=== PATIENT | female | born 1985 | race Caucasian/White ===

== ENCOUNTER 2019-10-17 23:06 | Emergency (ER) | payer MEDICAID ==
[~2019-10-17] VITALS: Ht 167.6 cm; Wt 136.0 kg
[2019-10-17] MEDS ORDERED: ondansetron 4mg rapidly disintigrating tab PO ONE (23:25)
[2019-10-17 23:40] LABS: BASOPHILS # (AUTO) 0.1 X10'3 (0-0.2); BASOPHILS % (AUTO) 0.9 % (0-1); EOSINOPHILS # (AUTO) 0.2 X10'3 (0-0.9); EOSINOPHILS % (AUTO) 2.3 % (0-6); HEMOGLOBIN 13.9 g/dl (12.0-16.0); LYMPHOCYTES # (AUTO) 1.8 X10'3 (1.1-4.8); LYMPHOCYTES % (AUTO) 25.5 % (21-51); MEAN CORPUSCULAR HEMOGLOBIN 30.4 PG (27.0-31.0); MEAN CORPUSCULAR VOLUME 89.3 FL (78-98); MEAN PLATELET VOLUME 9.2 FL (7.4-10.4); MONOCYTES # (AUTO) 0.4 X10'3 (0-0.9); NEUTROPHILS # (AUTO) 4.7 X10'3 (1.8-7.7); NEUTROPHILS % (AUTO) 66.3 % (42-75); PLATELET COUNT 208 X10'3 (140-440); RED BLOOD COUNT 4.59 X10'6 (4.20-5.60); RED CELL DISTRIBUTION WIDTH 13.5 % (11.5-14.5); WHITE BLOOD COUNT 7.1 X10'3 (4.5-11.0)
[2019-10-17 23:59] LABS: ALANINE AMINOTRANSFERASE 164 U/L (12-78); ALBUMIN 3.5 G/DL (3.4-5.0); ALKALINE PHOSPHATASE 247 IU/L (46-116); ANION GAP 9 (8-16); ASPARTATE AMINO TRANSFERASE 51 U/L (10-37); BILIRUBIN,TOTAL 7.5 MG/DL (0.1-1.0); BLOOD UREA NITROGEN 7 MG/DL (7-18); CHLORIDE 105 MMOL/L (99-107); GLUCOSE 104 MG/DL (70-104); LIPASE 111 U/L (73-393); SODIUM 138 MMOL/L (135-145); TOTAL CARBON DIOXIDE 23.9 MMOL/L (24-32); eGFR > 90 ML/MIN
[2019-10-18 00:16] LABS: ALBUMIN/GLOBULIN RATIO 0.8 (1.1-1.5); CALCIUM 9.2 MG/DL (8.5-10.1); TOTAL PROTEIN 7.7 G/DL (6.4-8.2)
[2019-10-18 00:24] LABS: URINE HCG NEGATIVE (NEG)
[2019-10-18 00:33] LABS: CLARITY,URINE CLOUDY (Clear); COLOR,URINE YELLOW (Yellow); GLUCOSE, URINE NEGATIVE (Neg); KETONES,URINE TRACE mg/dl (Neg); LEUKOCYTE ESTERASE ,URINE TRACE (Neg); NITRITES, URINE NEGATIVE (Neg); OCCULT BLOOD,URINE LARGE (Neg); PH,URINE 6.5 (4.8-8.0); PROTEIN,URINE 100 mg/dl (Neg)
[2019-10-18 00:37] LABS: UA COLLECTION TYPE CLN CATCH MIDSTREAM
[2019-10-18 00:38] LABS: BACTERIA,URINE FEW /HPF (Neg); RBC,URINE 50-100 /HPF (0-2); SQUAMOUS EPITHELIAL CELL,UR FEW /LPF (FEW); WBC,URINE 0-4 /HPF (0-4)
[2019-10-18] MEDS ORDERED: normal saline 1000ml 1,000 ML IV SCH (01:07)
[2019-10-18] MEDS ORDERED: ondansetron/PF 4mg/2ml inj IV PRN (01:10)
[2019-10-18] MEDS ORDERED: potassium CL 10mEq/100ml bag 100 ML IV PRN ×2 (01:10)
[2019-10-18] MEDS ORDERED: metoclopramide 5 mg/ml inj IV PRN (01:10)
[2019-10-18] MEDS ORDERED: magnesium 4gm in 100ml NS 100 ML IV PRN (01:10)
[2019-10-18] MEDS ORDERED: mag hydrox/Alum hydrox/simeth 30ml oral suspension PO PRN (01:10)
[2019-10-18] MEDS ORDERED: magnesium 2GM in 50ml NS 50 ML IV PRN (01:10)
[2019-10-18] MEDS ORDERED: potassium Cl 20 mEq SR tablet PO PRN ×2 (01:10)
[2019-10-18] MEDS ORDERED: acetaminophen 325mg tablet PO PRN (01:10)
[2019-10-18] MEDS ORDERED: magnesium hydroxide 30ml (MOM) UD suspension PO PRN (01:10)
[2019-10-18 01:43] VITALS: BP 142/50
[2019-10-18] MEDS ORDERED: heparin, porcine 5000 units/ml vial SQ SCH (08:00)
[2019-10-18] MEDS ORDERED: K and/or MAG REPLACEMENT MC SCH (08:00)
[2019-10-18] MEDS ORDERED: NORMAL SALINE IV ONE (08:00)
[2019-10-18] MEDS ORDERED: SINCALIDE IV ONE (08:00)
[2019-10-18] MEDS ORDERED: NORE0.3520 PO (11:27)
== END 2019-10-18 01:47 | disposition home or self-care (01) ==
LOC: ER 23:07 → EDBEDREQTM 10-18 01:05 → UNDOADMIN 10-18 01:07 → ED HOLD 10-18 01:07 → EDBEDREQ 10-18 01:25 → UNDODISIN 10-18 01:45
DX: K80.20 Calculus of gallbladder without cholecystitis without obstruction (principal); R17 Unspecified jaundice; Z86.19 Personal history of other infectious and parasitic diseases; Z79.899 Other long term (current) drug therapy
CPT/HCPCS: 36415; 76700; 80053; 81001; 81025; 83690; 85025; 87088; 99284; 99285; G0378

== ENCOUNTER 2019-10-18 09:45 | Inpatient (IN) | payer MEDICAID ==
[2019-10-18] VITALS (13 sets, daily range): BP systolic 105–153; BP diastolic 61–98
[~2019-10-18] VITALS: Ht 167.6 cm; Wt 136.4 kg
[2019-10-18] MEDS ORDERED: normal saline 1000ML IV soln IVB ONE (10:05)
[2019-10-18] MEDS ORDERED: piperacillin/tazo 3.375gm/50ml 50 ML IV ONE (10:10)
[2019-10-18] MEDS ORDERED: ondansetron/PF 4mg/2ml inj IV PRN (10:20)
[2019-10-18] MEDS ORDERED: potassium CL 10mEq/100ml bag 100 ML IV PRN (10:20)
[2019-10-18] MEDS ORDERED: magnesium 2GM in 50ml NS 50 ML IV PRN (10:20)
[2019-10-18] MEDS ORDERED: mag hydrox/Alum hydrox/simeth 30ml oral suspension PO PRN (10:20)
[2019-10-18] MEDS ORDERED: acetaminophen 325mg tablet PO PRN ×2 (10:20)
[2019-10-18] MEDS ORDERED: acetaminophen 650mg rectal suppository RC PRN (10:20)
[2019-10-18] MEDS ORDERED: magnesium hydroxide 30ml (MOM) UD suspension PO PRN (10:20)
[2019-10-18] MEDS ORDERED: magnesium 4gm in 100ml NS 100 ML IV PRN (10:20)
[2019-10-18] MEDS ORDERED: magnesium Cl slow-release 64mg tablet PO PRN (10:20)
[2019-10-18] MEDS ORDERED: morphine 2 MG/ML inj. syringe IV PRN ×2 (10:20)
[2019-10-18] MEDS ORDERED: bisacodyl 10mg suppository rectal RC PRN (10:20)
[2019-10-18] MEDS ORDERED: HYDROcodone/acetaminophen 5mg/325mg tablet PO PRN (10:20)
[2019-10-18] MEDS ORDERED: potassium Cl 20 mEq SR tablet PO PRN ×2 (10:20)
[2019-10-18] MEDS ORDERED: metoclopramide 5 mg/ml inj IV PRN (10:20)
[2019-10-18] MEDS ORDERED: diphenhydrAMINE 25mg capsule PO PRN (10:20)
[2019-10-18 11:09] LABS: BASOPHILS % (AUTO) 0.4 % (0-1); EOSINOPHILS # (AUTO) 0.2 X10'3 (0-0.9); EOSINOPHILS % (AUTO) 2.6 % (0-6); HEMATOCRIT 42.8 % (35.0-45.0); HEMOGLOBIN 14.5 g/dl (12.0-16.0); LYMPHOCYTES # (AUTO) 1.9 X10'3 (1.1-4.8); LYMPHOCYTES % (AUTO) 29.9 % (21-51); MEAN CORPUSCULAR HEMOGLOBIN 30.1 PG (27.0-31.0); MEAN CORPUSCULAR HGB CONC 33.8 g/dL (33.0-36.5); MEAN CORPUSCULAR VOLUME 88.8 FL (78-98); MEAN PLATELET VOLUME 9.2 FL (7.4-10.4); MONOCYTES # (AUTO) 0.3 X10'3 (0-0.9); MONOCYTES % (AUTO) 5.1 % (2-12); NEUTROPHILS # (AUTO) 3.9 X10'3 (1.8-7.7); PLATELET COUNT 231 X10'3 (140-440); RED BLOOD COUNT 4.82 X10'6 (4.20-5.60); RED CELL DISTRIBUTION WIDTH 13.4 % (11.5-14.5); WHITE BLOOD COUNT 6.3 X10'3 (4.5-11.0)
[2019-10-18 11:21] LABS: ALANINE AMINOTRANSFERASE 153 U/L (12-78); ALBUMIN 3.4 G/DL (3.4-5.0); ALKALINE PHOSPHATASE 260 IU/L (46-116); ANION GAP 13 (8-16); ASPARTATE AMINO TRANSFERASE 49 U/L (10-37); BILIRUBIN,TOTAL 7.9 MG/DL (0.1-1.0); BLOOD UREA NITROGEN 5 MG/DL (7-18); BUN/CREATININE RATIO 6.8 (6.6-38.0); CALCIUM 9.7 MG/DL (8.5-10.1); CHLORIDE 103 MMOL/L (99-107); CREATININE 0.73 MG/DL (0.40-0.90); GLUCOSE 120 MG/DL (70-104); LIPASE 75 U/L (73-393); SODIUM 140 MMOL/L (135-145); TOTAL CARBON DIOXIDE 24.2 MMOL/L (24-32); eGFR > 90 ML/MIN
[2019-10-18 11:22] LABS: ALBUMIN/GLOBULIN RATIO 0.8 (1.1-1.5); POTASSIUM 3.7 MMOL/L (3.5-5.1); TOTAL PROTEIN 7.7 G/DL (6.4-8.2)
[2019-10-18] MEDS ORDERED: fentaNYL/PF 50MCG/1 ML 2ML syringe ONE (11:22)
[2019-10-18] MEDS ORDERED: MIDAZolam 5mg/5ml vial ONE (11:22)
[2019-10-18] MEDS ORDERED: LIDOcaine Viscous 15ml cup ONE (11:22)
[2019-10-18 11:23] LABS: ACETAMINOPHEN < 2.0 UG/ML (10-30); HEMOGLOBIN A1C 5.3 % (4.5-6.2)
[2019-10-18] MEDS ORDERED: glucagon, human recombinant 1mg kit ONE (11:23)
[2019-10-18] MEDS ORDERED: iohexol 300 MG/1 ML 50ml polymer ONE (11:23)
[2019-10-18] MEDS ORDERED: NORE0.3520 PO (11:27)
[2019-10-18] MEDS ORDERED: proCHLORperazine 10 MG/2 ml inj ONE (11:36)
--- NOTE | 2019-10-18 13:42 | NUR ---
Patient in room [facility]. I have received report from DANNIELLE FORRESTER FROM ER and had the opportunity to ask questions and assume patient care.
[2019-10-18] MEDS: dextrose 5%-normal saline 1,000 ML IV SCH ×3 (15:26→23:29)
[2019-10-18] MEDS: piperacillin/tazo 3.375gm/50ml 50 ML IV SCH ×2 (18:25→23:29)
--- NOTE | 2019-10-18 18:30 | NUR ---
Patient in room [facility]. I have received report from JOSE R and had the opportunity to ask questions and assume patient care.
--- NOTE | 2019-10-18 18:35 | NUR ---
Problems reprioritized. Patient report given, questions answered & plan of care reviewed with DANNIELLE RUELAS.
[2019-10-18] MEDS: K and/or MAG REPLACEMENT MC SCH (20:00)
[2019-10-19 05:32] LABS: BASOPHILS % (AUTO) 0.7 % (0-1); EOSINOPHILS # (AUTO) 0.1 X10'3 (0-0.9); EOSINOPHILS % (AUTO) 2.4 % (0-6); HEMATOCRIT 36.3 % (35.0-45.0); HEMOGLOBIN 12.3 g/dl (12.0-16.0); LYMPHOCYTES # (AUTO) 1.6 X10'3 (1.1-4.8); LYMPHOCYTES % (AUTO) 26.5 % (21-51); MEAN CORPUSCULAR HEMOGLOBIN 30.3 PG (27.0-31.0); MEAN CORPUSCULAR HGB CONC 33.9 g/dL (33.0-36.5); MEAN CORPUSCULAR VOLUME 89.5 FL (78-98); MEAN PLATELET VOLUME 9.5 FL (7.4-10.4); MONOCYTES # (AUTO) 0.3 X10'3 (0-0.9); MONOCYTES % (AUTO) 5.4 % (2-12); NEUTROPHILS # (AUTO) 3.9 X10'3 (1.8-7.7); PLATELET COUNT 194 X10'3 (140-440); RED BLOOD COUNT 4.06 X10'6 (4.20-5.60); RED CELL DISTRIBUTION WIDTH 13.6 % (11.5-14.5)
[2019-10-19 05:38] LABS: ALANINE AMINOTRANSFERASE 106 U/L (12-78); ALBUMIN 2.6 G/DL (3.4-5.0); ALBUMIN/GLOBULIN RATIO 0.8 (1.1-1.5); ALKALINE PHOSPHATASE 207 IU/L (46-116); ANION GAP 9 (8-16); ASPARTATE AMINO TRANSFERASE 37 U/L (10-37); BILIRUBIN,TOTAL 6.8 MG/DL (0.1-1.0); BLOOD UREA NITROGEN 8 MG/DL (7-18); BUN/CREATININE RATIO 9.5 (6.6-38.0); CALCIUM 8.7 MG/DL (8.5-10.1); CHLORIDE 108 MMOL/L (99-107); CHOL/HDL RATIO 18.2 (0.00-4.99); CHOLESTEROL 182 MG/DL (0-200); CREATININE 0.84 MG/DL (0.40-0.90); GLUCOSE 118 MG/DL (70-104); HDL CHOLESTEROL 10 MG/DL (35-60); LDL CHOLESTEROL 169 MG/DL (50-100); PHOSPHORUS 3.8 MG/DL (2.3-4.5); POTASSIUM 3.6 MMOL/L (3.5-5.1); SODIUM 142 MMOL/L (135-145); TOTAL CARBON DIOXIDE 24.7 MMOL/L (24-32); TRIGLYCERIDES 205 MG/DL (20-135); eGFR 78 ML/MIN
--- NOTE | 2019-10-19 06:31 | NUR ---
Problems reprioritized. Patient report given, questions answered & plan of care reviewed with MICHAEL.
--- NOTE | 2019-10-19 06:51 | NUR ---
Patient in room [facility]. I have received report from DANNIELLE Mccarthy and had the opportunity to ask questions and assume patient care.
[2019-10-19 07:00] VITALS: BP 116/70
[2019-10-19] MEDS: K and/or MAG REPLACEMENT MC SCH ×2 (07:59→20:00)
[2019-10-19] MEDS: piperacillin/tazo 3.375gm/50ml 50 ML IV SCH ×2 (08:01→16:03)
[2019-10-19] MEDS: dextrose 5%-normal saline 1,000 ML IV SCH ×2 (08:05→18:23)
[2019-10-19 11:55] VITALS: BP 121/75
--- NOTE | 2019-10-19 18:26 | NUR ---
Problems reprioritized. Patient report given, questions answered & plan of care reviewed with Kari Pierce RN.
--- NOTE | 2019-10-19 18:30 | NUR ---
Patient in room [facility]. I have received report from MICHAEL SPICER and had the opportunity to ask questions and assume patient care.
[2019-10-19 20:00] VITALS: BP 128/83
[2019-10-19] MEDS: HYDROcodone/acetaminophen 10/325mg tab PO PRN (22:32)
[2019-10-20] VITALS (19 sets, daily range): BP systolic 115–153; BP diastolic 64–90
[2019-10-20] MEDS: piperacillin/tazo 3.375gm/50ml 50 ML IV SCH ×3 (00:07→16:54)
[2019-10-20] MEDS: dextrose 5%-normal saline 1,000 ML IV SCH ×2 (04:10→11:13)
[2019-10-20 05:35] LABS: BASOPHILS % (AUTO) 0.5 % (0-1); EOSINOPHILS # (AUTO) 0.2 X10'3 (0-0.9); EOSINOPHILS % (AUTO) 3.2 % (0-6); HEMATOCRIT 36.8 % (35.0-45.0); HEMOGLOBIN 12.3 g/dl (12.0-16.0); LYMPHOCYTES # (AUTO) 1.9 X10'3 (1.1-4.8); LYMPHOCYTES % (AUTO) 32.7 % (21-51); MEAN CORPUSCULAR HEMOGLOBIN 29.9 PG (27.0-31.0); MEAN CORPUSCULAR HGB CONC 33.6 g/dL (33.0-36.5); MEAN CORPUSCULAR VOLUME 89.1 FL (78-98); MONOCYTES # (AUTO) 0.3 X10'3 (0-0.9); MONOCYTES % (AUTO) 4.7 % (2-12); NEUTROPHILS # (AUTO) 3.3 X10'3 (1.8-7.7); NEUTROPHILS % (AUTO) 58.9 % (42-75); PLATELET COUNT 191 X10'3 (140-440); RED BLOOD COUNT 4.13 X10'6 (4.20-5.60); RED CELL DISTRIBUTION WIDTH 13.4 % (11.5-14.5); WHITE BLOOD COUNT 5.7 X10'3 (4.5-11.0)
[2019-10-20 05:53] LABS: ALANINE AMINOTRANSFERASE 96 U/L (12-78); ALBUMIN 2.8 G/DL (3.4-5.0); ALKALINE PHOSPHATASE 214 IU/L (46-116); ANION GAP 8 (8-16); ASPARTATE AMINO TRANSFERASE 34 U/L (10-37); BILIRUBIN,TOTAL 6.2 MG/DL (0.1-1.0); BLOOD UREA NITROGEN 7 MG/DL (7-18); BUN/CREATININE RATIO 8.5 (6.6-38.0); CALCIUM 8.8 MG/DL (8.5-10.1); CHLORIDE 106 MMOL/L (99-107); CREATININE 0.82 MG/DL (0.40-0.90); GLUCOSE 121 MG/DL (70-104); POTASSIUM 3.4 MMOL/L (3.5-5.1); SODIUM 141 MMOL/L (135-145); TOTAL CARBON DIOXIDE 27.1 MMOL/L (24-32); eGFR 80 ML/MIN
[2019-10-20 05:56] LABS: ALBUMIN/GLOBULIN RATIO 0.8 (1.1-1.5); PHOSPHORUS 3.6 MG/DL (2.3-4.5); TOTAL PROTEIN 6.5 G/DL (6.4-8.2)
--- NOTE | 2019-10-20 06:13 | NUR ---
Problems reprioritized. Patient report given, questions answered & plan of care reviewed with MICHAEL SPICER.
--- NOTE | 2019-10-20 06:15 | NUR ---
Patient in room [facility]. I have received report from Kari Pierce RN and had the opportunity to ask questions and assume patient care.
[2019-10-20] MEDS: K and/or MAG REPLACEMENT MC SCH ×2 (06:56→20:00)
[2019-10-20] MEDS: potassium CL 10mEq/100ml bag 100 ML IV PRN ×4 (07:13→13:13)
[2019-10-20] MEDS ORDERED: INDOCYANINE GREEN 25 MG/10 ML VIAL IV ONE (13:00)
[2019-10-20] MEDS ORDERED: iohexol 300 MG/1 ML 50ml polymer ONE (13:48)
[2019-10-20] MEDS ORDERED: glucagon, human recombinant 1mg kit ONE (13:49)
--- NOTE | 2019-10-20 14:30 | NUR ---
Patient to the OR via bed with x2 staff members. Patient alert, oriented and in no apparent distress at time of transport.
[2019-10-20] MEDS ORDERED: BUPIVAcaine/PF 2.5 mg/ml (0.25%) 30ml vial ONE (14:50)
[2019-10-20] MEDS ORDERED: LIDOcaine 1% 30ml preserv. free vial ONE (14:50)
[2019-10-20] MEDS ORDERED: fentaNYL /PF 50mcg/ml 5ml ampule ONE (14:58)
[2019-10-20] MEDS ORDERED: midazolam 2 mg/2 ml injection ONE (14:58)
[2019-10-20] MEDS ORDERED: sevoflurane 250ml liquid IH ONE (14:59)
[2019-10-20] MEDS ORDERED: insulin regular, human U-100 3ml vial - multi-dose ONE (16:13)
--- NOTE | 2019-10-20 16:43 | NUR ---
Received from OR via BED, accompanied by Anesthesiologist DR POSADA and report given by Anesthesiolgist. AWAKE, APPROPRIATE RESPONSES. VSS. IV LEFT HAND PATENT WITH LR @ 100MLS/HR. SCD'S APPLIED BILAT. MONITOR SR. PT STATES HX A-FIB IN 2012 FROM "STRESS". EKG OBTAINED PER DR POSADA R/T EPISODE OF A-FIB IN THE OR. EKG NSR. PT DENIES ANY DISCOMFORT.
[2019-10-20] MEDS ORDERED: meperidine/PF 25mg/ml syringe IV PRN ×3 (16:55)
[2019-10-20] MEDS ORDERED: morphine 4 MG/ML inj SYRINge IV PRN (16:55)
[2019-10-20] MEDS ORDERED: ringers solution, lacted 1,000 ML IV SCH (16:55)
[2019-10-20] MEDS ORDERED: proCHLORperazine 10 MG/2 ml inj IV PRN (16:55)
[2019-10-20] MEDS ORDERED: morphine 2 MG/ML inj. syringe IV PRN (16:55)
[2019-10-20] MEDS ORDERED: ondansetron/PF 4mg/2ml inj IV PRN (16:55)
[2019-10-20] MEDS ORDERED: metoprolol tartrate 1mg/ml inj IV ONE (17:09)
[2019-10-20] MEDS ORDERED: neostigmine methylsulfate 1 MG/ML 10ml vial ONE (17:09)
[2019-10-20] MEDS ORDERED: ondansetron/PF 4mg/2ml inj ONE (17:09)
[2019-10-20] MEDS ORDERED: propofol inj 20 ML IV ONE (17:09)
[2019-10-20] MEDS ORDERED: succinylcholine 20mg/ml inj IV ONE (17:09)
[2019-10-20] MEDS ORDERED: rocuronium 10mg/ml inj IV ONE (17:09)
[2019-10-20] MEDS ORDERED: LIDOcaine 2% (20mg/ml) 5ml vial ONE (17:09)
[2019-10-20] MEDS ORDERED: glycopyrrolate 0.2mg/ml inj ONE (17:09)
[2019-10-20] MEDS ORDERED: esmolol inj. 10 ML IV ONE (17:09)
--- NOTE | 2019-10-20 17:43 | NUR ---
VSS. AWAKE, CONVERSING WITH STAFF. NO COMPLAINTS. MONITOR SR. IV PATENT #20 LEFT HAND. REPORT GIVEN TO MICHAEL SPICER WITH ALL QUESTIONS ANSWERED. TRANSPORTED VIA BED TO [facility] BY RN WITH MICHAEL PRESENT TO RECEIVE PT. BED LOWERED, CALL LIGHT GIVEN, AND O2 CONNECTED. Addendum: 10/20/19 at 1800 by Catherine Alfredo RN Amended: Links added.
--- NOTE | 2019-10-20 18:35 | NUR ---
Problems reprioritized. Patient report given, questions answered & plan of care reviewed with Kari Pierce RN.
[2019-10-20] MEDS: lactobacillus rhamnosus 10,000 MMU CELLS/CAPSULE PO SCH (21:58)
[2019-10-20] MEDS: HYDROcodone/acetaminophen 10/325mg tab PO PRN (21:58)
[2019-10-21] VITALS: BP 116/71
[2019-10-21] MEDS: piperacillin/tazo 3.375gm/50ml 50 ML IV SCH ×3 (00:45→16:21)
[2019-10-21] MEDS: diphenhydrAMINE 50 mg/ml inj IV PRN ×2 (04:47→16:36)
[2019-10-21] MEDS: dextrose 5%-normal saline 1,000 ML IV SCH ×2 (04:56→16:27)
--- NOTE | 2019-10-21 06:30 | NUR ---
Problems reprioritized. Patient report given, questions answered & plan of care reviewed with FILIPE SPICER.
[2019-10-21 07:00] VITALS: BP 116/73
--- NOTE | 2019-10-21 07:02 | NUR ---
Patient in room [facility]. I have received report from DANNIELLE Marquez and had the opportunity to ask questions and assume patient care.
[2019-10-21 07:09] LABS: BASOPHILS % (AUTO) 0.6 % (0-1); EOSINOPHILS # (AUTO) 0.2 X10'3 (0-0.9); EOSINOPHILS % (AUTO) 3.4 % (0-6); HEMOGLOBIN 12.1 g/dl (12.0-16.0); LYMPHOCYTES # (AUTO) 1.8 X10'3 (1.1-4.8); LYMPHOCYTES % (AUTO) 27.7 % (21-51); MEAN CORPUSCULAR HGB CONC 33.5 g/dL (33.0-36.5); MEAN CORPUSCULAR VOLUME 89.6 FL (78-98); MEAN PLATELET VOLUME 9.3 FL (7.4-10.4); MONOCYTES # (AUTO) 0.3 X10'3 (0-0.9); MONOCYTES % (AUTO) 4.7 % (2-12); NEUTROPHILS % (AUTO) 63.6 % (42-75); PLATELET COUNT 187 X10'3 (140-440); RED BLOOD COUNT 4.01 X10'6 (4.20-5.60); RED CELL DISTRIBUTION WIDTH 13.5 % (11.5-14.5); WHITE BLOOD COUNT 6.3 X10'3 (4.5-11.0)
[2019-10-21 07:23] LABS: ALANINE AMINOTRANSFERASE 91 U/L (12-78); ALBUMIN 2.7 G/DL (3.4-5.0); ALKALINE PHOSPHATASE 210 IU/L (46-116); ANION GAP 6 (8-16); ASPARTATE AMINO TRANSFERASE 47 U/L (10-37); BILIRUBIN,TOTAL 6.2 MG/DL (0.1-1.0); BLOOD UREA NITROGEN 7 MG/DL (7-18); BUN/CREATININE RATIO 8.1 (6.6-38.0); CALCIUM 9.1 MG/DL (8.5-10.1); CHLORIDE 105 MMOL/L (99-107); CREATININE 0.86 MG/DL (0.40-0.90); GLUCOSE 111 MG/DL (70-104); POTASSIUM 3.3 MMOL/L (3.5-5.1); SODIUM 139 MMOL/L (135-145); TOTAL CARBON DIOXIDE 28.2 MMOL/L (24-32); eGFR 76 ML/MIN
[2019-10-21 07:26] LABS: PARTIAL THROMBOPLASTIN TIME 25 SECONDS (22-32)
[2019-10-21 07:27] LABS: MAGNESIUM 1.9 MG/DL (1.5-2.4); TROPONIN I < 0.04 NG/ML (0.0-0.05)
[2019-10-21 07:28] LABS: ALBUMIN/GLOBULIN RATIO 0.8 (1.1-1.5); PHOSPHORUS 4.2 MG/DL (2.3-4.5); TOTAL PROTEIN 6.2 G/DL (6.4-8.2)
[2019-10-21] MEDS: lactobacillus rhamnosus 10,000 MMU CELLS/CAPSULE PO SCH ×2 (07:31→20:26)
[2019-10-21] MEDS: K and/or MAG REPLACEMENT MC SCH ×3 (08:00→19:40)
[2019-10-21 11:00] VITALS: BP 131/83
[2019-10-21] MEDS ORDERED: potassium Cl 20 mEq SR tablet PO PRN (12:05)
[2019-10-21] MEDS ORDERED: potassium CL 10mEq/100ml bag 100 ML IV PRN ×2 (12:05)
[2019-10-21] MEDS: potassium Cl 20 mEq SR tablet PO PRN ×3 (13:31→23:21)
--- NOTE | 2019-10-21 16:46 | NUR ---
Dr. Fishman phoned for results of echo, and is aware LVEF=65% Pt to be NPO p mn for surgery in am.
--- NOTE | 2019-10-21 18:38 | NUR ---
Problems reprioritized. Patient report given, questions answered & plan of care reviewed with DANNIELLE Marquez.
--- NOTE | 2019-10-21 18:40 | NUR ---
Patient in room [facility]. I have received report from FILIPE SPICER and had the opportunity to ask questions and assume patient care.
[2019-10-21 20:00] VITALS: BP 107/56
[2019-10-21] MEDS: HYDROcodone/acetaminophen 10/325mg tab PO PRN (20:26)
[2019-10-22] VITALS (18 sets, daily range): BP systolic 112–140; BP diastolic 65–90
[2019-10-22] MEDS: piperacillin/tazo 3.375gm/50ml 50 ML IV SCH ×2 (00:43→07:33)
[2019-10-22] MEDS: dextrose 5%-normal saline 1,000 ML IV SCH ×2 (00:45→15:02)
[2019-10-22 05:49] LABS: BASOPHILS % (AUTO) 0.6 % (0-1); EOSINOPHILS # (AUTO) 0.2 X10'3 (0-0.9); HEMATOCRIT 37.6 % (35.0-45.0); HEMOGLOBIN 12.7 g/dl (12.0-16.0); LYMPHOCYTES # (AUTO) 1.9 X10'3 (1.1-4.8); LYMPHOCYTES % (AUTO) 30.5 % (21-51); MEAN CORPUSCULAR HEMOGLOBIN 30.3 PG (27.0-31.0); MEAN CORPUSCULAR HGB CONC 33.8 g/dL (33.0-36.5); MEAN CORPUSCULAR VOLUME 89.8 FL (78-98); MEAN PLATELET VOLUME 9.3 FL (7.4-10.4); MONOCYTES # (AUTO) 0.3 X10'3 (0-0.9); MONOCYTES % (AUTO) 4.4 % (2-12); NEUTROPHILS # (AUTO) 3.8 X10'3 (1.8-7.7); NEUTROPHILS % (AUTO) 60.5 % (42-75); PLATELET COUNT 213 X10'3 (140-440); RED BLOOD COUNT 4.19 X10'6 (4.20-5.60); RED CELL DISTRIBUTION WIDTH 13.2 % (11.5-14.5); WHITE BLOOD COUNT 6.3 X10'3 (4.5-11.0)
--- NOTE | 2019-10-22 06:12 | NUR ---
Problems reprioritized. Patient report given, questions answered & plan of care reviewed with FILIPE SPICER.
--- NOTE | 2019-10-22 06:24 | NUR ---
Patient in room [facility]. I have received report from DANNIELLE Marquez and had the opportunity to ask questions and assume patient care.
[2019-10-22 06:34] LABS: ALANINE AMINOTRANSFERASE 90 U/L (12-78); ALBUMIN 3.1 G/DL (3.4-5.0); ALKALINE PHOSPHATASE 217 IU/L (46-116); ANION GAP 8 (8-16); ASPARTATE AMINO TRANSFERASE 44 U/L (10-37); BILIRUBIN,TOTAL 5.6 MG/DL (0.1-1.0); BLOOD UREA NITROGEN 8 MG/DL (7-18); CALCIUM 9.1 MG/DL (8.5-10.1); CHLORIDE 106 MMOL/L (99-107); GLUCOSE 111 MG/DL (70-104); POTASSIUM 3.9 MMOL/L (3.5-5.1); SODIUM 140 MMOL/L (135-145); TOTAL CARBON DIOXIDE 26.5 MMOL/L (24-32); eGFR 83 ML/MIN
[2019-10-22 06:36] LABS: ALBUMIN/GLOBULIN RATIO 0.8 (1.1-1.5); PHOSPHORUS 3.5 MG/DL (2.3-4.5); TOTAL PROTEIN 6.9 G/DL (6.4-8.2)
[2019-10-22] MEDS ORDERED: INDOCYANINE GREEN 25 MG/10 ML VIAL IV ONE (06:40)
[2019-10-22] MEDS: lactobacillus rhamnosus 10,000 MMU CELLS/CAPSULE PO SCH ×2 (07:38→19:29)
[2019-10-22] MEDS: K and/or MAG REPLACEMENT MC SCH ×3 (08:00→19:31)
[2019-10-22] MEDS ORDERED: BUPIVAcaine/PF 2.5 mg/ml (0.25%) 30ml vial ONE (08:40)
[2019-10-22] MEDS ORDERED: LIDOcaine 1% 30ml preserv. free vial ONE (08:40)
--- NOTE | 2019-10-22 09:17 | NUR ---
Pt out to OR for gallbladder surgery. Report called out to PACU.
[2019-10-22] MEDS ORDERED: ringers solution, lacted 1,000 ML IV SCH (09:18)
[2019-10-22] MEDS ORDERED: morphine 4 MG/ML inj SYRINge IV PRN (09:20)
[2019-10-22] MEDS ORDERED: morphine 2 MG/ML inj. syringe IV PRN (09:20)
[2019-10-22] MEDS ORDERED: proCHLORperazine 10 MG/2 ml inj IV PRN (09:20)
[2019-10-22] MEDS ORDERED: ondansetron/PF 4mg/2ml inj IV PRN (09:20)
[2019-10-22] MEDS ORDERED: meperidine/PF 25mg/ml syringe IV PRN ×3 (09:20)
[2019-10-22] MEDS ORDERED: acetaminophen 1,000mg/100ml IV 100 ML IV PRN (09:20)
[2019-10-22] MEDS ORDERED: midazolam 2 mg/2 ml injection ONE (09:48)
[2019-10-22] MEDS ORDERED: fentaNYL /PF 50mcg/ml 5ml ampule ONE (09:48)
[2019-10-22] MEDS ORDERED: sevoflurane 250ml liquid IH ONE (10:00)
[2019-10-22] MEDS ORDERED: propofol inj 20 ML IV ONE (10:25)
[2019-10-22] MEDS ORDERED: rocuronium 10mg/ml inj IV ONE (10:25)
[2019-10-22] MEDS ORDERED: LIDOcaine 2% 5ml jelly ONE (10:25)
[2019-10-22] MEDS ORDERED: LIDOcaine 2% (20mg/ml) 5ml vial ONE (10:25)
[2019-10-22] MEDS ORDERED: metoprolol tartrate 1mg/ml inj IV ONE (10:25)
[2019-10-22] MEDS ORDERED: dexamethasone sod phosphate 4mg/ml inj. ONE (10:30)
[2019-10-22] MEDS ORDERED: ondansetron/PF 4mg/2ml inj ONE (10:30)
[2019-10-22] MEDS ORDERED: iohexol 300 MG/1 ML 50ml polymer ONE (11:31)
--- NOTE | 2019-10-22 11:34 | NUR ---
Initial: Pt admit with choledocholithiasis with obstructive jaundice and transaminitis secondary to choledocholithiasis. Pt s/p ERCP with stent placement per MD notes. Pt currently in OR pending cholecystectomy. Prior to NPO diet order pt was documented with 75-100% PO intake on clear liquids and regular diet. LBM 10/17. Pt with PRN bowel care. No nutrition intervention appropriate at this time given NPO status. Will continue to follow. Recommendations: 1) Advance to low fat diet as medically indicated 2) Monitor need for ONS with PO diet advancement 3) Routine bowel care 4) Wt per rx Addendum: 10/22/19 at [address] Amended: Links added.
[2019-10-22] MEDS ORDERED: neostigmine methylsulfate 1 MG/ML 10ml vial ONE (12:28)
[2019-10-22] MEDS ORDERED: glycopyrrolate 0.2mg/ml inj ONE (12:28)
--- NOTE | 2019-10-22 12:44 | NUR ---
Received from OR via SURGICAL BED , accompanied by Anesthesiologist WILMA and report given by Anesthesiolgist. PATIENT WITH 20G PIV IN LEFT UE RUNNING LR AT 100. DENIES PAIN AT THIS TIME. PATIENT WITH 4 ABDOMINAL BANDAIDS PRESENT AND ARE CDI. SCDS DONNED IN RR Addendum: 10/22/19 at 1253 by William Hawkins RN, RN Amended: Links added.
[2019-10-22] MEDS ORDERED: HYDROcodone/acetaminophen 5mg/325mg tablet PO PRN (13:05)
[2019-10-22] MEDS ORDERED: HYDROcodone/acetaminophen 10/325mg tab PO PRN (13:05)
--- NOTE | 2019-10-22 13:05 | NUR ---
Patient in recovery room. I have received report from DANNIELLE Thomas for primary RN Toshia.
--- NOTE | 2019-10-22 13:47 | NUR ---
Patient has met criteria for transfer to floor. Patient vss. Pain at a tolerable level. Transferred via bed to room where they were hooked to vitals and RN notified patient has arrived. Bed low, call light within reach, 2-3 rails up, vss, belongings placed in room. Care turned over to RN. PAIN AT 2/10 TO ABDOMEN. VSS. RN AWARE PATIENT HAS ARRIVED. Addendum: 10/22/19 at 1347 by William Campbell - DANNIELLE RN Amended: Links added.
--- NOTE | 2019-10-22 13:53 | NUR ---
Pt back to surgical floor from OR. A&O, c/o mild pain to right abd. V/S 97.4, 124/75, 65, 16, O2sat 98% at 3l n/c. will monitor per protocol.
[2019-10-22] MEDS: HYDROcodone/acetaminophen 10/325mg tab PO PRN ×2 (15:10→21:59)
--- NOTE | 2019-10-22 18:25 | NUR ---
Problems reprioritized. Patient report given, questions answered & plan of care reviewed with Gregorio Kirk RN. Pt resting in bed comfortably, no c/o pain or discomfort, tolerating full liquid diet well. states passing gas. Ambulated 600 feet post surgery.
--- NOTE | 2019-10-22 18:38 | NUR ---
Patient in room [facility]. I have received report from DANNIELLE Pope and had the opportunity to ask questions and assume patient care. Addendum: 10/22/19 at 1838 by Inocencia Mcarthur RN Amended: Links added.
[2019-10-22] MEDS: heparin, porcine 5000 units/ml vial SQ SCH (19:28)
[2019-10-23] VITALS: BP 147/85
[2019-10-23] MEDS: dextrose 5%-normal saline 1,000 ML IV SCH (00:20)
[2019-10-23] MEDS: HYDROcodone/acetaminophen 10/325mg tab PO PRN (03:20)
[2019-10-23 04:42] LABS: BASOPHILS % (AUTO) 0.3 % (0-1); EOSINOPHILS % (AUTO) 0.1 % (0-6); HEMATOCRIT 37.8 % (35.0-45.0); HEMOGLOBIN 12.6 g/dl (12.0-16.0); LYMPHOCYTES # (AUTO) 1.2 X10'3 (1.1-4.8); LYMPHOCYTES % (AUTO) 14.8 % (21-51); MEAN CORPUSCULAR HEMOGLOBIN 29.9 PG (27.0-31.0); MEAN CORPUSCULAR HGB CONC 33.3 g/dL (33.0-36.5); MEAN CORPUSCULAR VOLUME 89.5 FL (78-98); MEAN PLATELET VOLUME 9.3 FL (7.4-10.4); MONOCYTES # (AUTO) 0.3 X10'3 (0-0.9); MONOCYTES % (AUTO) 3.5 % (2-12); NEUTROPHILS # (AUTO) 6.7 X10'3 (1.8-7.7); NEUTROPHILS % (AUTO) 81.3 % (42-75); PLATELET COUNT 238 X10'3 (140-440); RED BLOOD COUNT 4.22 X10'6 (4.20-5.60); RED CELL DISTRIBUTION WIDTH 13.1 % (11.5-14.5); WHITE BLOOD COUNT 8.3 X10'3 (4.5-11.0)
[2019-10-23 04:54] LABS: ALANINE AMINOTRANSFERASE 129 U/L (12-78); ALBUMIN/GLOBULIN RATIO 0.8 (1.1-1.5); ALKALINE PHOSPHATASE 205 IU/L (46-116); ANION GAP 8 (8-16); ASPARTATE AMINO TRANSFERASE 90 U/L (10-37); BILIRUBIN,TOTAL 5.7 MG/DL (0.1-1.0); BLOOD UREA NITROGEN 8 MG/DL (7-18); CALCIUM 9.4 MG/DL (8.5-10.1); CHLORIDE 102 MMOL/L (99-107); CREATININE 0.73 MG/DL (0.40-0.90); GLUCOSE 106 MG/DL (70-104); MAGNESIUM 1.8 MG/DL (1.5-2.4); PHOSPHORUS 3.8 MG/DL (2.3-4.5); POTASSIUM 3.7 MMOL/L (3.5-5.1); SODIUM 136 MMOL/L (135-145); TOTAL CARBON DIOXIDE 26.5 MMOL/L (24-32); TOTAL PROTEIN 6.9 G/DL (6.4-8.2); eGFR > 90 ML/MIN
--- NOTE | 2019-10-23 06:29 | NUR ---
Problems reprioritized. Patient report given, questions answered & plan of care reviewed with DANNIELLE Hernandez.
--- NOTE | 2019-10-23 06:30 | NUR ---
Patient in room [facility]. I have received report from Yelena Perkins RN and had the opportunity to ask questions and assume patient care.
[2019-10-23 07:07] VITALS: BP 131/80
[2019-10-23] MEDS: K and/or MAG REPLACEMENT MC SCH (08:00)
[2019-10-23] MEDS: heparin, porcine 5000 units/ml vial SQ SCH (08:20)
[2019-10-23] MEDS: lactobacillus rhamnosus 10,000 MMU CELLS/CAPSULE PO SCH (08:20)
[2019-10-23 12:00] VITALS: BP 134/71
[2019-10-23] MEDS ORDERED: LACT1CAP26 PO (12:27)
[2019-10-23] MEDS ORDERED: HYDR-4383 PO (12:27)
== END 2019-10-23 15:24 | disposition home or self-care (01) | DRG 263 ==
LOC: ER 09:45 → ED HOLD 10:16 → SUR 3N 13:50
PROVIDERS: ADMIT Family Medicine; ATTEND Family Medicine
PROC: 0F798DZ Dilation of Common Bile Duct with Intraluminal Device, Via Natural or Artificial Opening Endoscopic (ICD-10-PCS; 2019-10-18)
PROC: BF101ZZ Fluoroscopy of Bile Ducts using Low Osmolar Contrast (ICD-10-PCS; 2019-10-18)
PROC: 0FC98ZZ Extirpation of Matter from Common Bile Duct, Via Natural or Artificial Opening Endoscopic (ICD-10-PCS; 2019-10-20)
PROC: 0FPB8DZ Removal of Intraluminal Device from Hepatobiliary Duct, Via Natural or Artificial Opening Endoscopic (ICD-10-PCS; 2019-10-20)
PROC: BF101ZZ Fluoroscopy of Bile Ducts using Low Osmolar Contrast (ICD-10-PCS; 2019-10-20)
PROC: 8E0W4CZ Robotic Assisted Procedure of Trunk Region, Percutaneous Endoscopic Approach (ICD-10-PCS; 2019-10-22)
PROC: BF101ZZ Fluoroscopy of Bile Ducts using Low Osmolar Contrast (ICD-10-PCS; 2019-10-22)
PROC: 0FT44ZZ Resection of Gallbladder, Percutaneous Endoscopic Approach (ICD-10-PCS; principal; 2019-10-22 10:00)
DX: K80.65 Calculus of gallbladder and bile duct with chronic cholecystitis with obstruction (principal); E66.01 Morbid (severe) obesity due to excess calories; I07.1 Rheumatic tricuspid insufficiency; I48.0 Paroxysmal atrial fibrillation; Z68.42 Body mass index [BMI] 45.0-49.9, adult; E78.5 Hyperlipidemia, unspecified; J45.909 Unspecified asthma, uncomplicated; Z83.3 Family history of diabetes mellitus; Z88.2 Allergy status to sulfonamides; Z82.49 Family history of ischemic heart disease and other diseases of the circulatory system; Z79.899 Other long term (current) drug therapy
CPT/HCPCS: 36415; 43262; 43264; 43274; 43276; 43277; 74300; 76000; 80053; 80061; 80329; 82948; 83036; 83605; 83690; 83735; 84100; 84439; 84443; 84484; 85025; 85610; 85730; 86885; 86900; 86901; 87040; 87081; 93005; 93306; 99152; 99153; 99285; A4215; A4618; A4620; A6449; A7000; C1726; C1769; C1773; G0378; J0330; J0780; J1100; J1200; J1610; J1644; J1815; J2001; J2175; J2250; J2405; J2543; J2704; J2710; J3010; J3480; J3490; J7030; J7040; J7042; J7120; Q0163; Q9967